=== PATIENT | male | born 1955 | race Caucasian/White ===

== ENCOUNTER 2018-02-17 11:32 | Emergency (ER) | payer MEDICAID | END 2018-02-17 13:30 | disposition home or self-care (01) | LOC: FTE 11:32 | DX: H92.02 Otalgia, left ear (principal); Z87.891 Personal history of nicotine dependence | CPT/HCPCS: 99283; Z7502 ==

== ENCOUNTER → 2018-08-20 | Emergency (ER) | payer MEDICAID | END | disposition home or self-care (01) | LOC: FTE 12:39 | DX: R05 Cough (principal); F17.210 Nicotine dependence, cigarettes, uncomplicated | CPT/HCPCS: 99283; Z7502 ==